=== PATIENT | female | born 1995 | race Caucasian/White ===

== ENCOUNTER 2018-05-06 20:13 | Emergency (ER) | payer SELFPAY ==
--- NOTE | 2018-05-06 20:58 | NUR ---
CALLED TO [facility]; NOT IN WAITING ROOM
--- NOTE | 2018-05-06 21:12 | NUR ---
ATTEMPTED TO CALL PATIENT BUT NO ANSWER. WILL TRY AGAIN IN 5 MIN.
== END 2018-05-06 21:29 | disposition left against medical advice (07) ==
LOC: ER 20:17
DX: Z53.21 Procedure and treatment not carried out due to patient leaving prior to being seen by health care provider (principal)